=== PATIENT | male | born 1985 ===

== ENCOUNTER 2018-11-23 00:02 | Emergency (ER) | payer BC, OTHER ==
[2018-11-23 00:02] VITALS: BMI 33.0
[2018-11-23 00:11] VITALS: RESP 18; TEMP 98.2
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
[2018-11-23] MEDS: TDAP Vaccine 0.5 mL Syr IM ONE (00:47)
[2018-11-23] MEDS ORDERED: Absorbable Gelatin Sponge Size 12-7 ONE (00:51)
[2018-11-23 03:31] VITALS: BP 110/61; PULSE 80; O2SAT 100
== END 2018-11-23 01:17 | disposition home or self-care (01) ==
LOC: ED 00:02
DX: S61.411A Laceration without foreign body of right hand, initial encounter (principal); W26.0XXA Contact with knife, initial encounter; Z23 Encounter for immunization; E11.9 Type 2 diabetes mellitus without complications